=== PATIENT | female | born 1970 | race Two or more races ===

== ENCOUNTER 2021-10-31 13:56 | Emergency (ER) | payer OTHER ==
[~2021-10-31] VITALS: Ht 157.5 cm; Wt 68.0 kg
--- NOTE | 2021-10-31 13:56 | NUR ---
PT BIB SELF C/O R ARM NUMBNESS AND R DIGIT DISCOLORATION STARTED 1030H TODAY. PT IS AAOX4, NOT IN RESPIRATORY DISTRESS, V/S STABLE, KEPT RESTED AND COMFORTABLE. WILL CONTINUE TO MONITOR.
--- NOTE | 2021-10-31 14:25 | NUR ---
AT BEDSIDE FOR EVAL.
--- NOTE | 2021-10-31 15:17 | NUR ---
Patient discharged to home in stable condition. Written and verbal after care instructions given. Patient verbalizes understanding of instruction.
[2021-10-31 15:18] VITALS: BP 122/76
== END 2021-10-31 15:19 | disposition home or self-care (01) ==
LOC: ER 14:05
DX: M54.12 Radiculopathy, cervical region (principal); L81.9 Disorder of pigmentation, unspecified; Z60.2 Problems related to living alone